=== PATIENT | female | born 1995 | race Caucasian/White ===

== ENCOUNTER 2019-08-30 17:02 | Emergency (ER) | payer SELFPAY ==
[~2019-08-30] VITALS: Ht 162.6 cm; Wt 72.7 kg
[~2019-08-30 17:02] MED LIST: ALBU8HFA IH
[2019-08-30 17:53] LABS: BASOPHILS % (AUTO) 0.7 % (0.0-2.0); EOSINOPHILS % (AUTO) 2.2 % (1.0-6.0); HEMATOCRIT 37.5 % (36-46); HEMOGLOBIN 12.9 g/dL (12.0-16.0); LYMPHOCYTES # (AUTO) 1.8 K/uL (1.0-4.8); LYMPHOCYTES % (AUTO) 22.4 % (22.0-44.0); MEAN CORPUSCULAR HGB CONC 34.4 G/dL (31.0-37.0); MEAN CORPUSCULAR VOLUME 90 fL (80-100); MONOCYTES # (AUTO) 0.5 K/uL (0.1-1.0); MONOCYTES % (AUTO) 6.2 % (2.0-9.0); NEUTROPHILS # (AUTO) 5.4 K/uL (1.8-7.7); NEUTROPHILS % (AUTO) 68.5 % (40.0-70.0); PLATELET COUNT (AUTO) 223 K/uL (150-450); RED BLOOD CELL COUNT(AUTO) 4.16 MIL/uL (4.00-5.20); RED CELL DISTRIBUTION WIDTH 13.1 % (11.5-14.5)
[2019-08-30] MEDS ORDERED: RISP4 PO (22:22)
[2019-08-30] MEDS ORDERED: METF-960 PO (22:28)
[2019-08-30] MEDS ORDERED: GABA-531 PO (22:28)
[2019-08-30] MEDS ORDERED: ATOR40TA28 PO (22:28)
[2019-08-30] MEDS ORDERED: LISI-660 PO (22:28)
[2019-08-30] MEDS ORDERED: BENZ1TAB10 PO (22:28)
[2019-08-30] MEDS ORDERED: ALBU8HFA IH (22:33)
[2019-08-31 00:29] VITALS: BP 114/70
== END 2019-08-31 00:44 | disposition home or self-care (01) ==
LOC: EMS 17:04
DX: O20.0 Threatened abortion (principal); J45.909 Unspecified asthma, uncomplicated; Z3A.10 10 weeks gestation of pregnancy
CPT/HCPCS: 76801; 76817; 86901